=== PATIENT | female | born 1955 | race Caucasian/White ===

== ENCOUNTER 2021-08-03 10:43 | Day surgery (SDC) | payer OTHER ==
[2021-08-02 09:40] VITALS: BMI 36.7
[~2021-08-03 10:43] MED LIST: DEXAMETHASONE SOD PHOSPHATE 4 MG/ML 1 ML VIAL IV ONE; HEPARIN SODIUM,PORCINE/PF 5,000 UNIT/0.5 ML SYRINGE SQ PRN; HYDROmorphone 0.5 MG/0.5 ML SYRINGE IVP PRN; LIDOCAINE 1% (10MG/ML) FOR IV START INTRADERMA PRN; ONDANSETRON 4 MG/2 ML VIAL IVP ONE
[2021-08-03] MEDS ORDERED: MELOXICAM 7.5 MG TAB PO PRN (10:49)
[2021-08-03] MEDS ORDERED: ACETAMINOPHEN TAB 500 MG TAB PO PRN (10:49)
[2021-08-03] MEDS ORDERED: GABAPENTIN 300 MG CAP PO PRN (10:49)
--- NOTE | 2021-08-03 10:49 | P.GSHP ---
History of Present Illness H&P Date: 08/03/21 CHIEF COMPLAINT: Left breast nodule HISTORY OF PRESENT ILLNESS: The patient is a 65 year-old female who presents with a left breast nodule that she seeks for excision due to pain and tenderness ongoing for over one year. PAST MEDICAL HISTORY: Please see list. PAST SURGICAL HISTORY: Please see list. MEDICATIONS: Please see list. ALLERGIES: Please see list. SOCIAL HISTORY: No illicit drug use FAMILY HISTORY: No reports of Crohn disease or ulcerative colitis. REVIEW OF ORGAN SYSTEMS: CONSTITUTIONAL: No reports of fevers or chills. GI: Denies any blood in stools or constipation. PHYSICAL EXAM: VITAL SIGNS: Stable SKIN: Well perfused. Good skin turgor. 1 cm lesion along the left breast nodule. Musculoskeletal: No clubbing cyanosis or edema GENERAL: Well developed and in no acute distress. Pleasant. HEENT: No sclera icterus. Extraocular movements grossly intact. Moist buccal mucosa. Head is atraumatic, normocephalic. Hears conversational speech. No nasal drainage. NECK: Supple without lymphadenopathy. No JV distention. CHEST: Non-labored respirations and equal bilateral excursions. CARDIOVASCULAR: Regular rate and rhythm. Palpable 2+ radial pulses. ABDOMEN: Soft. Non-tender. Nondistended. NEUROLOGIC: No focal or lateralizing signs. PSYCH: Appropriate affect. Alert and oriented to person, place and time. ASSESSMENT: 1. Left breast nodule PLAN: 1. Will proceed of excision of left breast nodule described 2. DVT prophylaxis. 3. Antibiotic prophylaxis. 4. Time of recovery, at least one week. Past Medical History Past Medical History: COPD, Fibromyalgia, Osteoarthritis (OA), Thyroid Disorder Additional Past Medical History / Comment(s): migraines, "tachycardia from medications", hx spinal stenosis History of Any Multi-Drug Resistant Organisms: None Reported Past Surgical History: Appendectomy, Back Surgery, Section, Joint Replacement, Orthopedic Surgery, Tonsillectomy Additional Past Surgical History / Comment(s): thyroidectomy, daniel knee arthroscopy, left knee replacement, left shoulder replacement, rt ankle surgery, D&C x 2, C/S x 3, oral surgery, laminectomy Past Anesthesia/Blood Transfusion Reactions: No Reported Reaction Smoking Status: Former smoker - Past Family History Mother Family Medical History: Cancer Father Family Medical History: Cancer Brother(s) Family Medical History: Cancer Medications and Allergies Home Medications Medication Instructions Recorded Confirmed Type ALPRAZolam [Xanax] 1 mg PO DAILY PRN 07/18/21 08/02/21 History Cyclobenzaprine [Flexeril] 10 mg PO BID 07/18/21 08/02/21 History Fluticasone Nasal [place] [Flonase 2 spray EA NOSTRIL DAILY 07/18/21 08/02/21 History Nasal [place]] Gabapentin [Neurontin] 600 mg PO TID 07/18/21 08/02/21 History Levothyroxine Sodium [Synthroid] 75 mcg PO DAILY 07/18/21 08/02/21 History Liothyronine Sodium [Cytomel] 5 mcg PO DAILY 07/18/21 08/02/21 History Loratadine [Claritin] 10 mg PO DAILY 07/18/21 08/02/21 History traZODone HCL 100 mg PO HS PRN 07/18/21 08/02/21 History Lurasidone [Latuda] 20 mg PO DAILY 08/02/21 08/02/21 History Allergies Allergy/AdvReac Type Severity Reaction Status Date / Time aripiprazole [From Abilify] Allergy Rapid Verified 08/02/21 08:50 Heart Rate divalproex sodium Allergy Dyspnea/hiv Verified 08/02/21 08:43 [From Depakote] es Iodinated Contrast Media Allergy VERY LOW Verified 08/02/21 08:43 BLOOD PRESSURE ,WENT INTO SHOCK"
[2021-08-03 11:26] VITALS: TEMP 99
[2021-08-03] MEDS: LACTATED RINGERS 1,000 ML IV SCH ×2 (11:34→12:14)
[2021-08-03 11:42] LABS: Basophils % (A) 1 %; Eosinophils # (A) 0.2 k/uL (0-0.7); Eosinophils % (A) 3 %; HCT 42.2 % (34.0-46.0); HGB 13.9 gm/dL (11.4-16.0); Lymphocytes % (A) 32 %; MCH 33.7 pg (25.0-35.0); MCV 102.3 fL (80.0-100.0); Macrocytosis Slight; Mean Platelet Volume 6.8; Monocytes # (A) 0.2 k/uL (0-1.0); Monocytes % (A) 4 %; Neutrophils # (A) 3.7 k/uL (1.3-7.7); Neutrophils % (A) 59 %; Platelet Count 355 k/uL (150-450); RBC 4.12 m/uL (3.80-5.40); RDW 12.7 % (11.5-15.5); WBC 6.3 k/uL (3.8-10.6)
[2021-08-03] MEDS ORDERED: MIDAZOLAM 2 MG/2 ML VIAL IVP ONE (12:06)
[2021-08-03] MEDS ORDERED: PROPOFOL 10 MG/ML 20 ML VIAL IV ONE (12:08)
[2021-08-03] MEDS ORDERED: fentaNYL (PF) 50 MCG/ML 2 ML AMP ONE (12:08)
[2021-08-03] MEDS ORDERED: LIDOCAINE 1% INJ 10MG/ML (20 ML MDV) ONE (12:08)
[2021-08-03] MEDS ORDERED: LIDOCAINE 1%-EPI 1:100,000 20 ML VIAL SQ ONE (12:16)
[2021-08-03 13:34] VITALS: RESP 16
--- NOTE | 2021-08-03 13:43 | P.OP ---
Date of Procedure: 08/03/21 Description of Procedure: SURGEON: SALONI COLEY MD ENVIRONMENTAL SCIENCES PROFESSOR: None. PREOPERATIVE DIAGNOSES: 1. Left breast nodule, upper inner quadrant 2. Hypothyroidism 3. Depressive disorder 4. Migraine 5. Morbid obesity due to excess calories, BMI 36.8 6. Chronic obstructive pulmonary disease 7. Fibromyalgia 8. Spinal stenosis POSTOPERATIVE DIAGNOSES: 1. Left breast nodule, upper inner quadrant 2. Hypothyroidism 3. Depressive disorder 4. Migraine 5. Morbid obesity due to excess calories, BMI 36.8 6. Chronic obstructive pulmonary disease 7. Fibromyalgia 8. Spinal stenosis PROCEDURES PERFORMED: 1. Excision of left breast nodule, upper inner quadrant, 5 x 2 cm 2. Intermediate closure of 5 cm along the chest wall. ANESTHESIA: LMA and local ESTIMATED BLOOD LOSS: 1 mL. SPECIMENS REMOVED: Left breast nodule, short suture medial, superior suture long COMPLICATIONS: None. FINDINGS: 1. Left breast nodule completely excised INDICATIONS: The patient is a 65-year-old female with painful and palpable superficial nodule along the left breast. Now he presents for surgical intervention. Benefits and risks of surgical intervention were described including bleeding, infection. Informed consent was obtained. DESCRIPTION OR PROCEDURE: Patient was brought into the operating room, laid in supine position. After general induction, the chest was prepped and draped in a standard sterile fashion with ChloraPrep. Timeout protocol was confirmed with the surgical team regarding the patient's name, procedure to be performed including preoperative medications. DVT prophylaxis was confirmed. A field block was placed of the left breast at the upper medial quadrant. Indelible marker was placed around the mid chest lesion. A transverse elliptical incision using #15 blade was made along the marking into the dermis and subcutaneous tissue. Electro-Bovie cautery was used to excise the lesion into the breast parenchyma in a circumferential fashion. The specimen was marked short medial long superior. 0 Vicryl for the deep subcutaneous tissue followed by 3-0 Monocryl in a running subcuticular fashion was placed along the dermis. The skin was cleansed and Exofin tape was applied followed by Optifoam. Local anesthetic was placed. At the end of the procedure, needle, sponge, and instrument count was verified correct by surgical appliance fitter. The patient was awoken and taken to the second stage postanesthesia care unit. The patient tolerated the procedure well. Plan - Discharge Summary Discharge Rx Participant: Yes New Discharge Prescriptions: New Acetaminophen Tab [Tylenol Tab] 1,000 mg PO Q6HR PRN #30 tablet PRN Reason: Pain Continue Gabapentin [Neurontin] 600 mg PO TID Fluticasone Nasal [place] [Flonase Nasal [place]] 2 spray EA NOSTRIL DAILY ALPRAZolam [Xanax] 1 mg PO DAILY PRN PRN Reason: Anxiety Levothyroxine Sodium [Synthroid] 75 mcg PO DAILY Loratadine [Claritin] 10 mg PO DAILY Cyclobenzaprine [Flexeril] 10 mg PO BID traZODone HCL 100 mg PO HS PRN PRN Reason: sleep Liothyronine Sodium [Cytomel] 5 mcg PO DAILY Lurasidone [Latuda] 20 mg PO DAILY Discharge Medication List ALPRAZolam [Xanax] 1 mg PO DAILY PRN 07/18/21 [History] Cyclobenzaprine [Flexeril] 10 mg PO BID 07/18/21 [History] Fluticasone Nasal [place] [Flonase Nasal [place]] 2 spray EA NOSTRIL DAILY 07/18/21 [History] Gabapentin [Neurontin] 600 mg PO TID 07/18/21 [History] Levothyroxine Sodium [Synthroid] 75 mcg PO DAILY 07/18/21 [History] Liothyronine Sodium [Cytomel] 5 mcg PO DAILY 07/18/21 [History] Loratadine [Claritin] 10 mg PO DAILY 07/18/21 [History] traZODone HCL 100 mg PO HS PRN 07/18/21 [History] Lurasidone [Latuda] 20 mg PO DAILY 08/02/21 [History] Acetaminophen Tab [Tylenol Tab] 1,000 mg PO Q6HR PRN #30 tablet 08/03/21 [Rx] Follow up Appointment(s)/Referral(s): Saloni Coley MD [STAFF PHYSICIAN] - 08/15/21 Patient Instructions/Handouts: Excision of Skin Lesion (DC) Activity/Diet/Wound Care/Special Instructions: DO NOT REMOVE DRESSING. SEE INSTRUCTIONS ON DRESSING May shower. No bath tub soaks for two weeks August 17 Diet as tolerated. Use Tylenol and ibuprofen or Aleve scheduled for the next 24-48 hours for best pain relief. Use ice along incisions for today to prevent swelling. Discharge Disposition: HOME SELF-CARE
[2021-08-03 14:36] VITALS: BP 137/88; PULSE 90
== END 2021-08-03 14:46 | disposition home or self-care (01) ==
LOC: OR 10:43
PROVIDERS: ATTEND Surgery Plastic and Reconstructive Surgery
DX: N63.22 Unspecified lump in the left breast, upper inner quadrant (principal); E03.9 Hypothyroidism, unspecified; F32.9 Major depressive disorder, single episode, unspecified; G43.909 Migraine, unspecified, not intractable, without status migrainosus; E66.01 Morbid (severe) obesity due to excess calories; Z68.36 Body mass index [BMI] 36.0-36.9, adult; J44.9 Chronic obstructive pulmonary disease, unspecified; M79.7 Fibromyalgia; M48.00 Spinal stenosis, site unspecified
CPT/HCPCS: 19301; 88304; 85025; J2250; J1100; J0690; J2405; J2001; J3010; J2704; J1644

== ENCOUNTER → 2021-10-25 | Outpatient (CLI) | payer OTHER ==
--- NOTE | 2021-11-01 07:49 | MM ---
Reason for Exam: Screening (asymptomatic). Last mammogram was performed 1 year(s) and 2 month(s) ago. Patient History: Menarche at age 18. First Full-Term at age 32. Late child-bearing (after 32). Postmenopausal. Estrogen, starting at age 53 for 2 years, 10 months. Progesterone, starting at age 53 for 2 years, 10 months. 12/10/2008, Benign Core Biopsy on the left side. Mother had breast cancer, age 68. Risk Values: Nikki 5 year model risk: 3.4%. NCI Lifetime model risk: 14.0%. Prior Study Comparison: 09/07/2010 Bilateral Diagnostic Mammogram, [facility]. 12/07/2011 Bilateral Screening Mammogram, [facility]. 08/05/2013 Bilateral Screening Mammogram, [facility]. 04/01/2020 Bilateral MG screening mammo w CAD - 2, [facility]. 04/19/2020 Bilateral MG diagnostic mammo w CAD [facility] - 2, [facility]. 08/23/2020 Bilateral MG 3D diag mammo w/cad [facility] - 2, [facility]. Tissue Density: There are scattered fibroglandular densities. Findings: Analyzed By CAD. There are 2 biopsy clips in the outer upper left breast redemonstrated. There are some regional and scattered benign-appearing round calcifications bilaterally redemonstrated. Benign-appearing bilateral axillary lymph nodes are present on current study. Small well-defined masses background glanular tissue in the upper outer aspect of both breasts is again seen. There is no suspicious group of microcalcifications or new distortion in either breast. Overall Assessment: Benign, BI-RAD 2 Management: Screening Mammogram of both breasts in 1 year. A clinical breast exam by your physician is recommended on an annual basis and results should be correlated with mammographic findings. Electronically signed and approved by: Gary Mcelroy M.D.
== END | disposition home or self-care (01) ==
LOC: RADMAMWWP 12:07
PROVIDERS: ATTEND Family Medicine
DX: Z12.31 Encounter for screening mammogram for malignant neoplasm of breast (principal); Z78.0 Asymptomatic menopausal state; Z80.3 Family history of malignant neoplasm of breast
CPT/HCPCS: 77067

== ENCOUNTER → 2022-08-09 | Outpatient (CLI) | payer OTHER ==
--- NOTE | 2022-08-09 14:23 | P.SLEEP ---
History of Present Illness DATE: 08/09/2022 CONSULTATION/NEW PATIENT EVALUATION HISTORY OF PRESENT ILLNESS/SLEEP-WAKE EVALUATION: 66-year-old lady had been ev aluated in the sleep center for possible obstructive sleep apnea hypopnea syndrome. SLEEP SCHEDULE: Usually sleep schedule from 10:30 PM until 7:30 AM 7 days a week. FALLING ASLEEP: No problems with falling asleep, no TV in bedroom. DURING SLEEP: Patient has loud snoring and witnessed episodes of stop breathing during the sleep. Patient crying to her teeth, has awakenings with dry mouth and nocturia 3 times. Positive history of palpitations and panic attack. No history of hypnogogical hallucinations, sleep paralysis, or cataplexy. DURING THE DAY/WAKE STATE: During the day patient has problems with concentration, irritability, anxiety. [place] sleepiness scale is 2. Patient really take naps for about 45 minutes at 3 PM. PAST MEDICAL HISTORY: Ventricular tachycardia, depression, fibromyalgia, arthritis, headaches. PAST SURGICAL HISTORY: Thyroidectomy for benign tumor. MEDICATIONS: Levothyroxine 75 g once a day, Trazodone 100 mg as needed, metoprolol 100 mg once a day, gabapentin 3 times a day, alprazolam as needed to help with falling asleep, latuda. SOCIAL HISTORY: Positive for smoking for about 10 years on and off half pack a day quit about 30 years ago. No history of alcohol consumption. FAMILY HISTORY: Hypertension, cancer, diabetes. REVIEW OF SYSTEMS: Snoring, multiple awakenings from sleep. No fevers. No double vision. No recent chest pain. No shortness of breath. No abdominal pain. No bleeding episodes. No blood in urine. No seizure episodes. PHYSICAL EXAMINATION: GENERAL: A pleasant patient without any distress. VITAL SIGNS: BP 114/75, HR 66, RR 14, weight 246 pounds, height 5 foot 3.5 inches, body mass index 42.8. HEENT: PERRLA, EOMI. Evaluation of oropharynx showed tongue protrudes midline, low position of soft palate Mallampati 23. Wide pillars. NECK: Supple. No JVD. Thyroid is not palpable. 14.5 inches in circumference. LUNGS: Clear to percussion and to auscultation. Good air exchange. No wheezing or rhonchi. HEART: S1, S2 regular. No murmurs, gallops or rubs. ABDOMEN: Soft and nontender. Bowel sounds are present. No organomegaly appreciated. Obese EXTREMITIES: No clubbing or cyanosis. [employer]IN[employer] FAC[employer]Y: Awake, alert, and oriented x3. Cranial nerves 2 to 7 intact. There is no fasciculation or atrophy noted. No focal deficits observed. ASSESSMENT: 1. Snoring, multiple awakenings from sleep, small oropharyngeal airspace with low position of soft palate and to wide pillars. Obstructive sleep apnea hypopnea syndrome. 2. Obesity, body mass index 42.8. 3. History of ventricular tachycardia. 4. History of depression. 5 history of fibromyalgia. 6 . History of arthritis. 7. Headaches. 8. Status post thyroidectomy for benign tumor in the past. 9 . Status post tonsillectomy. 10. Status post laminectomy ectomy in 2003. 11. Status post left shoulder replacement. 12. Status post right ankle replacement in 2020. 13. Status post knee surgery multiple times. PLAN: 1. Polysomnography for evaluation of patient's breathing during sleep. 2. CPAP/BiPAP titration if sleep study confirms obstructive sleep apnea- hypopnea syndrome. 3. Preferable position during sleep on the side. 4. No driving if patient feels any sleepiness. Patient is aware of civil and criminal liability for unsafe driving. 5. Sleep hygiene with regular sleep time for at least 7.5-8 hours. 6. Watching and losing weight. Thank you very much for referring this patient for consultation. Sincerely, Kaz Crowe MD, PhD, FAASM. Diplomat of [place] [employer], Sleep Medicine Board by [place] [employer] [place] [employer] Site Administrator of [facility] [place] Past Medical History Past Medical History: COPD, Fibromyalgia, Osteoarthritis (OA), Thyroid Disorder Additional Past Medical History / Comment(s): migraines, "tachycardia from medications", hx spinal stenosis History of Any Multi-Drug Resistant Organisms: None Reported Past Surgical History: Appendectomy, Back Surgery, Section, Joint Replacement, Orthopedic Surgery, Tonsillectomy Additional Past Surgical History / Comment(s): thyroidectomy, daniel knee arthroscopy, left knee replacement, left shoulder replacement, rt ankle surgery, D&C x 2, C/S x 3, oral surgery, laminectomy Past Anesthesia/Blood Transfusion Reactions: No Reported Reaction Smoking Status: Former smoker - Past Family History Mother Family Medical History: Cancer Father Family Medical History: Cancer Brother(s) Family Medical History: Cancer Medications and Allergies Home Medications Medication Instructions Recorded Confirmed Type ALPRAZolam [Xanax] 1 mg PO DAILY PRN 07/18/21 08/03/21 History Cyclobenzaprine [Flexeril] 10 mg PO BID 07/18/21 08/03/21 History Fluticasone Nasal [place] [Flonase 2 spray EA NOSTRIL DAILY 07/18/21 08/03/21 History Nasal [place]] Gabapentin [Neurontin] 600 mg PO TID 07/18/21 08/03/21 History Levothyroxine Sodium [Synthroid] 75 mcg PO DAILY 07/18/21 08/03/21 History Liothyronine Sodium [Cytomel] 5 mcg PO DAILY 07/18/21 08/03/21 History Loratadine [Claritin] 10 mg PO DAILY 07/18/21 08/03/21 History traZODone HCL 100 mg PO HS PRN 07/18/21 08/03/21 History Lurasidone [Latuda] 20 mg PO DAILY 08/02/21 08/03/21 History Acetaminophen Tab [Tylenol Tab] 1,000 mg PO Q6HR PRN #30 tablet 08/03/21 Rx Allergies Allergy/AdvReac Type Severity Reaction Status Date / Time aripiprazole [From Abilify] Allergy Rapid Verified 08/03/21 11:09 Heart Rate divalproex sodium Allergy Dyspnea/hiv Verified 08/03/21 11:09 [From Depakote] es Iodinated Contrast Media Allergy VERY LOW Verified 08/03/21 11:09 BLOOD PRESSURE ,WENT INTO SHOCK" Sleep Note - Sleep Note Sleep Note: Temperature: Pulse Rate: Respiratory Rate: Blood Pressure: SpO2: Height: Weight: BMI: Neck Circumference:
== END ==
LOC: SLEEP 13:39
PROVIDERS: ATTEND Internal Medicine
DX: G47.33 Obstructive sleep apnea (adult) (pediatric) (principal); E66.9 Obesity, unspecified; Z68.41 Body mass index [BMI] 40.0-44.9, adult; F32.A Depression, unspecified; M79.7 Fibromyalgia; M19.90 Unspecified osteoarthritis, unspecified site; Z98.890 Other specified postprocedural states; Z99.89 Dependence on other enabling machines and devices; Z96.612 Presence of left artificial shoulder joint; Z96.661 Presence of right artificial ankle joint; Z98.1 Arthrodesis status; R51.9 Headache, unspecified; Z88.8 Allergy status to other drugs, medicaments and biological substances; Z91.041 Radiographic dye allergy status
CPT/HCPCS: 99211

== ENCOUNTER 2022-09-25 19:06 | Outpatient (CLI) | payer OTHER | END 2022-09-26 23:59 | LOC: 3 N SLEEP 19:06 → EDSTATUS 20:00 → 3 N SLEEP 09-26 05:45 | PROVIDERS: ATTEND Internal Medicine | DX: G47.33 Obstructive sleep apnea (adult) (pediatric) (principal); E66.9 Obesity, unspecified; Z68.42 Body mass index [BMI] 45.0-49.9, adult; F32.A Depression, unspecified; I47.20 Ventricular tachycardia, unspecified; M79.7 Fibromyalgia; M19.90 Unspecified osteoarthritis, unspecified site; Z98.890 Other specified postprocedural states; Z96.612 Presence of left artificial shoulder joint; Z96.661 Presence of right artificial ankle joint; Z99.89 Dependence on other enabling machines and devices; J44.9 Chronic obstructive pulmonary disease, unspecified; G43.909 Migraine, unspecified, not intractable, without status migrainosus; Z87.891 Personal history of nicotine dependence; Z79.51 Long term (current) use of inhaled steroids; Z79.890 Hormone replacement therapy; Z91.041 Radiographic dye allergy status; Z88.8 Allergy status to other drugs, medicaments and biological substances | CPT/HCPCS: 95810 ==